=== PATIENT | male | born 1955 | race Caucasian/White ===

== ENCOUNTER 2024-06-22 09:32 | Outpatient (CLI) | payer MEDICARE | END 2024-06-22 09:33 | disposition home or self-care (01) | LOC: SCSMRI 09:32 | PROVIDERS: ATTEND Family Medicine | DX: M47.26 Other spondylosis with radiculopathy, lumbar region (principal); M47.27 Other spondylosis with radiculopathy, lumbosacral region | CPT/HCPCS: 72148 ==

== ENCOUNTER 2025-08-03 08:53 | Outpatient (CLI) | payer MEDICARE ==
[2025-08-03 10:16] LABS: Hematocrit 45.9 % (42.0-52.0); Hemoglobin 15.3 g/dL (14.0-18.0)
[2025-08-03 10:34] LABS: Anion Gap 12 mmol/L (10-20); BUN (Urea Nitrogen) 16 mg/dL (8.4-25.7); Calc. Creatinine Clearance 0 mL/min (70-130); Carbon Dioxide 27 mmol/L (23-31); Chloride 105 mmol/L (98-107); Potassium 4.2 mmol/L (3.5-5.1); Sodium 140 mmol/L (136-145)
[2025-08-03 10:35] LABS: Calcium 9.5 mg/dL (7.8-10.44); Glucose 99 mg/dL (80-115)
== END 2025-08-03 08:54 | disposition home or self-care (01) ==
LOC: LABBT 08:53
PROVIDERS: ATTEND Otolaryngology Otolaryngic Allergy
DX: Z01.818 Encounter for other preprocedural examination (principal); C43.39 Malignant melanoma of other parts of face
CPT/HCPCS: 80048; 85014; 85018; 93005; 93010

== ENCOUNTER → 2025-08-09 | Day surgery (SDC) | payer MEDICARE | LOC: NM 07:24 | PROVIDERS: ATTEND Plastic Surgery | PROC: 0JB10ZZ Excision of Face Subcutaneous Tissue and Fascia, Open Approach (ICD-10-PCS; principal; 2025-08-09) | DX: C43.39 Malignant melanoma of other parts of face (principal) | CPT/HCPCS: 14301; 78195; A9541; J3010; 88305; 88342 ==